=== PATIENT | male | born 1945 | race Caucasian/White ===

== ENCOUNTER 2024-05-02 11:30 | Emergency (ER) | payer OTHER, SELFPAY ==
[2024-05-02 11:47] VITALS: BP 155/84; PULSE 94; RESP 16; TEMP 37.7; O2SAT 99
--- NOTE | 2024-05-02 12:06 | ED.DENTAL ---
HPI - Dental/Oral General Chief complaint: Dental/Oral Stated complaint: Toothache/Facial Swelling Time Seen by Provider: 05/02/24 12:06 Source: patient, RN notes reviewed and old records reviewed Mode of arrival: ambulatory Limitations: no limitations History of Present Illness HPI Narrative: 78-year-old male to [facility] with complaint right lower dental pain for 3 days. Patient reports having partial lower dentures. Patient has attempted to treat at home with Tylenol, clove oil, Orajel with little relief. Patient states that he was able to sleep well last night without pain but woke up with severe swelling to right lower jaw and right lower lip. Patient denies fever, difficulty swallowing, cough, drainage. Patient endorses history of hypertension, high cholesterol, AFib. Patient febrile and hypertensive in triage. Respirations even and nonlabored. Patient in no acute distress. Patient able to tolerate fluids by mouth. Related Data Home Medications Medication Instructions Recorded Confirmed apixaban 5 mg tablet (Eliquis) mg 05/02/24 atorvastatin 20 mg tablet mg 05/02/24 diltiazem HCl 120 mg mg PO 05/02/24 capsule,extended release 24 hr, controlled sertraline 50 mg tablet mg 05/02/24 Allergies Allergy/AdvReac Type Severity Reaction Status Date / Time ibuprofen Allergy Severe Chest Pain Verified 05/02/24 12:01 NSAIDS Allergy Unknown Unknown Uncoded 05/02/24 11:38 Review of Systems Review of Systems: All systems reviewed & are unremarkable except as noted in HPI and below Constitutional: Constitutional: Reports no additional constitutional complaints Eyes: Eyes: Reports no additional eye complaints ENT: Reports as per HPI, Denies change in voice, Denies dental pain, Denies facial pain, Denies headache(s), Denies hoarseness, Reports lip swelling ( And right lower jaw) and Denies sore throat Cardiovascular: Cardiovascular: Reports no additional cardiovascular complaints, Denies chest pain and Denies dyspnea Respiratory: Respiratory: Reports no additional respiratory complaints, Denies cough and Denies dyspnea Musculoskeletal: Musculoskeletal: Reports no additional musculoskeletal complaints Neurologic: Reports system reviewed and no additional complaints, except as documented Psychiatric: Psychiatric: Reports no additional psychiatric complaints PMFSH Comments At the time of my signature, I reviewed and agree with the nursing past medical, surgical, social, and family history. There is no relevant family history pertinent to the patient complaint. Exam Const: General: cooperative, no acute distress, alert, well groomed and well nourished Nutritional Appearance: well nourished Orientation/consciousness: patient oriented x3 Limitations: no limitations HENMT: Head: normal to inspection Ears: external ears normal Face/Nose/Sinus: Normal external nose present, Normal nares present, No erythema, No edema and Facial tenderness on exam of face and sinuses ( with palpation of right lower jaw) Face and sinus: normal facial exam, no erythema and no edema Mouth: Yes lip abnormal ( lower lip edematous), Yes malodorous breath and No muffled voice Teeth and gingiva: caries and gingiva abnormal diffusely erythematous and receding; without any purulent discharge Eyes: General: appearance normal, both eyes and all related structures Neck: Neck: normal visual inspection, full ROM and no meningeal signs Lymphatic: no lymphadenopathy noted and no lymphedema noted Chest: Chest palpation & inspection: normal inspection of the chest Resp: Effort & Inspection: normal respiratory effort and able to speak in complete sentences Auscultation: clear to auscultation bilaterally Cardio: Jugular venous distension: no JVD Rate: regular rate Rhythm: regular rhythm Back/Spine/Pelvis: Cervical Spine: cervical ROM normal Skin: General skin exam: normal color, no rashes or lesions noted and turgor normal Neuro: Ge
== END 2024-05-02 12:20 | disposition home or self-care (01) ==
PROVIDERS: Emergency Provider Nurse Practitioner Family
DX: K04.7 Periapical abscess without sinus (principal); K02.9 Dental caries, unspecified; K05.10 Chronic gingivitis, plaque induced
CPT/HCPCS: 99203; G0463